=== PATIENT | female | born 1985 | race Two or more races ===

== ENCOUNTER 2017-08-31 00:34 | Emergency (ER) | payer MEDICAID, OTHER ==
[~2017-08-31] VITALS: Ht 165.1 cm; Wt 72.6 kg
[2017-08-31 05:52] VITALS: BP 128/89
[2017-08-31] MEDS ORDERED: cefTRIAXone W LIDOCAINE 1 GM IM IM ONE (06:30)
== END 2017-08-31 07:03 | disposition home or self-care (01) ==
LOC: ER 00:34
DX: M67.912 Unspecified disorder of synovium and tendon, left shoulder (principal); J45.909 Unspecified asthma, uncomplicated; F17.210 Nicotine dependence, cigarettes, uncomplicated; Z88.6 Allergy status to analgesic agent; Z88.8 Allergy status to other drugs, medicaments and biological substances; Z90.49 Acquired absence of other specified parts of digestive tract; Z98.51 Tubal ligation status
CPT/HCPCS: 73030; J0696